=== PATIENT | female | born 1990 | race Caucasian/White ===

== ENCOUNTER → 2019-01-06 08:22 | Outpatient (CLI) | payer BC, SELFPAY ==
--- NOTE | 2019-01-06 08:25 | US_ITS ---
US transvaginal HISTORY: Irregular periods ITS.REASON: US T/V- Irregular periods ORDERING PHYSICIAN: Teddy Andrade MD PATIENT AGE: 28 years Comparison: None FINDINGS: The uterus has an unremarkable appearance at 6 x 3 x 3 cm. Combined endometrial thickness is 7 mm. No endometrial or myometrial abnormalities evident. The left ovary is 4 x 2 x 3 cm with small follicles noted. There are at least 8 follicles noted in one image with a total volume of the left ovary at 14 mL's. The right ovary is 4 x 3 cm also containing multiple small follicles with a volume of 11 mL's. No dominant cyst are apparent. No cul-de-sac fluid apparent. IMPRESSION: The ovaries are slightly prominent with ovarian volumes of greater than 10 mL was with multiple bilateral follicles which may be seen with polycystic ovarian syndrome. Correlation with clinical parameters are needed. Otherwise negative pelvic ultrasound
== END ==
PROVIDERS: Visit Provider Nurse Practitioner Obstetrics & Gynecology
DX: N92.6 Irregular menstruation, unspecified (principal)
CPT/HCPCS: 76830

== ENCOUNTER → 2019-05-29 09:06 | Outpatient (CLI) | payer BC, SELFPAY ==
--- NOTE | 2019-05-29 09:10 | US_ITS ---
PROCEDURE: US OB TRANSVAGINAL CLINICAL INDICATION: us ob dates Early OB with spotting COMPARISON: TRANVAG US transvaginal from 01/06/2019 FINDINGS: Uterus is 6 x 3 x 4 cm with a combined endometrial thickness of 5 mm. No intrauterine gestational sac is evident. The left ovary is 3.6 x 1.5 cm and the right ovary is 4 x 1 cm both containing small follicles. No cul-de-sac fluid. IMPRESSION: No intrauterine gestation apparent. Please correlate as the patient's beta HCG level regarding the significance. A negative ultrasound with positive test could be related to either a very early gestation, spontaneous , or ectopic . Dictated by: Yonny Ferrell MD 05/29/2019 17:33 Electronically signed by Yonny Ferrell MD in [facility] 05/29/2019 17:33
[2019-05-29 12:00] LABS: Basophils % 0.4 % (0.1-2.0); Eosinophils # 0.1 K/mm3 (0.0-0.4); Eosinophils % 0.8 % (0.1-12.0); Hematocrit 42.6 % (37.0-47.0); Hemoglobin 13.7 g/dL (12.2-16.2); Lymphocytes # 1.5 K/mm3 (0.7-4.5); Lymphocytes % 22.1 % (10-50); Mean Corpuscular HGB Conc 32.2 g/dL (31.8-35.4); Mean Corpuscular Hemoglobin 29.5 pg (27.0-31.2); Mean Corpuscular Volume 91.5 fl (81-99); Mean Platelet Volume 7.1 fl (7.4-10.4); Monocytes # 0.5 K/mm3 (0.1-1.0); Monocytes % 7.2 % (1.7-9.3); Neutrophils # 4.8 K/mm3 (1.8-7.8); Neutrophils % 69.5 % (37.0-80.0); Platelet Count 312 K/mm3 (142-424); Red Blood Count 4.65 M/mm3 (4.20-5.40); Red Cell Distribution Width 13.5 % (11.5-17.5); White Blood Count 6.9 K/mm3 (4.8-10.8)
[2019-05-29 12:35] LABS: HCG,Quantitative 12 mIU/mL
[2019-05-30 07:18] LABS: Hepatitis B Surface Antigen Negative (Negative); Hepatitis C Antibody <0.1 s/co ratio (0.0-0.9); Rubella Antibodies, IgG 1.24 index (Immune >0.99)
[2019-05-31 11:45] LABS: HIV Screen 4th Generation wRfx Non Reactive (Non Reactive); Rapid Plasma Reagin Ab Titer Non Reactive (NonRea<1:1)
== END ==
PROVIDERS: Visit Provider Nurse Practitioner Obstetrics & Gynecology
DX: O26.841 Uterine size-date discrepancy, first trimester (principal)
CPT/HCPCS: 36415; 76817; 84702; 85025; 86592; 86703; 86762; 86850; 87340; 87380; G0432

== ENCOUNTER → 2019-05-29 11:03 | Outpatient (CLI) | payer BC, SELFPAY | PROVIDERS: Visit Provider Nurse Practitioner Obstetrics & Gynecology | DX: O26.841 Uterine size-date discrepancy, first trimester (principal) | CPT/HCPCS: 36415; 84702; 85025; 86592; 86703; 86762; 86850; 87340; 87380; G0432 ==

== ENCOUNTER → 2019-05-31 11:17 | Outpatient (CLI) | payer BC, SELFPAY ==
[2019-05-31 12:26] LABS: HCG,Quantitative 4 mIU/mL
== END ==
PROVIDERS: Visit Provider Nurse Practitioner Obstetrics & Gynecology
DX: O03.9 Complete or unspecified spontaneous abortion without complication (principal)
CPT/HCPCS: 36415; 84702

== ENCOUNTER → 2019-12-11 11:03 | Outpatient (CLI) | payer OTHER, SELFPAY ==
[2019-12-11 11:34] LABS: Basophils % 0.2 % (0.1-2.0); Eosinophils # 0.1 K/mm3 (0.0-0.4); Eosinophils % 0.9 % (0.1-12.0); Hematocrit 39.6 % (37.0-47.0); Hemoglobin 13.7 g/dL (12.2-16.2); Lymphocytes # 1.2 K/mm3 (0.7-4.5); Lymphocytes % 19.9 % (10-50); Mean Corpuscular HGB Conc 34.5 g/dL (31.8-35.4); Mean Corpuscular Hemoglobin 30.2 pg (27.0-31.2); Mean Corpuscular Volume 87.7 fl (81-99); Mean Platelet Volume 7.5 fl (7.4-10.4); Monocytes # 0.3 K/mm3 (0.1-1.0); Monocytes % 4.7 % (1.7-9.3); Neutrophils # 4.6 K/mm3 (1.8-7.8); Neutrophils % 74.4 % (37.0-80.0); Platelet Count 208 K/mm3 (142-424); Red Blood Count 4.52 M/mm3 (4.20-5.40); Red Cell Distribution Width 12.4 % (11.5-17.5); White Blood Count 6.1 K/mm3 (4.8-10.8)
[2019-12-12 06:58] LABS: HIV Screen 4th Generation wRfx Non Reactive (Non Reactive); Hepatitis B Surface Antigen Negative (Negative); Hepatitis C Antibody <0.1 s/co ratio (0.0-0.9)
[2019-12-12 09:30] LABS: Rapid Plasma Reagin Ab Titer Non Reactive (NonRea<1:1); Rubella Antibodies, IgG 1.07 index (Immune >0.99)
== END ==
PROVIDERS: Visit Provider Nurse Practitioner Obstetrics & Gynecology
DX: Z34.90 Encounter for supervision of normal pregnancy, unspecified, unspecified trimester (principal)
CPT/HCPCS: 36415; 85025; 86592; 86703; 86762; 86850; 87340; 87380; G0432

== ENCOUNTER → 2019-12-12 08:32 | Outpatient (CLI) | payer OTHER, SELFPAY ==
--- NOTE | 2019-12-12 08:32 | US_ITS ---
PROCEDURE: US OB TRANSVAGINAL CLINICAL INDICATION: dates COMPARISON: US OB TRANSVAGINAL from 05/29/2019 FINDINGS: An intrauterine gestational sac is present with a pole with a crown-rump length of 1.42cm correlating to gestational age of 7weeks 6days. heart tones are present with an FHR of 170bpm. Yolk sac is noted. Unremarkable adnexa with small bilateral ovarian follicles IMPRESSION: Live IUP at 7 weeks 6 days Estimated due date by Ultrasound is 07/24/2020 Dictated by: Yonny Ferrell MD 12/12/2019 18:44 Electronically signed by Yonny Ferrell MD in [facility] 12/12/2019 18:44
== END ==
PROVIDERS: PCP Nurse Practitioner Obstetrics & Gynecology; Visit Provider Nurse Practitioner Obstetrics & Gynecology
DX: O26.841 Uterine size-date discrepancy, first trimester (principal)
CPT/HCPCS: 76817

== ENCOUNTER → 2020-03-04 12:57 | Outpatient (CLI) | payer OTHER, SELFPAY ==
--- NOTE | 2020-03-04 12:57 | US_ITS ---
PROCEDURE: US OB /MATERNAL DETAIL CLINICAL INDICATION: 20 weeks gestation of Anatomy exam COMPARISON: US OB TRANSVAGINAL from 12/12/2019 FINDINGS: There is a single live fetus which is in breech presentation. Cervix is closed measuring 3.6 cm transabdominal. The placenta is posterior and grade 1. heart and body motion noted. Complete survey performed and was unremarkable on the submitted images as in PACS. No discrete anomalies identified on survey imaging by technologist. Active fetus. Three-vessel cord with satisfactory umbilical cord insertion. 4- chamber heart noted. Survey of brain & ventricles Unremarkable. Face and neck survey unremarkable. Diaphragm and chest views unremarkable. Abdomen: Both kidneys noted and unremarkable. Stomach noted and satisfactory. Spine: Survey of the spine satisfactory with no anomalies identified nor imaged. Both arms and legs noted. Amniotic Fluid: Adequate. Maternal adnexa: No significant findings. Measurements: Average ultrasound age 19weeks 6days. Gestational Age 19 weeks 5 days Estimated due date by ultrasound age 1207/23/2020. Estimated weight 319g BPD = 19weeks 5days OFD = 20weeks 3days HC = 19weeks 2days AC = 20weeks FL = 20weeks 1day Growth Percentile= 55Percent% Heart Rate = 155bpm Cerebellum = 20weeks 6days Humerus = 20weeks 3days HC/AC is 1.14 CI is 0.75 FL/BPD is 0.72 FL/AC is 0.22 IMPRESSION: Live IUP at 19 weeks 6 days. All parameters correlate with no obvious anomalies. Please see above for detail. Dictated by: Yonny Ferrell MD 03/05/2020 12:12 Electronically signed by Yonny Ferrell MD in [facility] 03/05/2020 12:12
== END ==
PROVIDERS: PCP Nurse Practitioner Obstetrics & Gynecology; Visit Provider Nurse Practitioner Obstetrics & Gynecology
DX: Z34.90 Encounter for supervision of normal pregnancy, unspecified, unspecified trimester (principal); Z3A.20 20 weeks gestation of pregnancy
CPT/HCPCS: 76811

== ENCOUNTER → 2020-03-21 02:52 | Outpatient (CLI) | payer OTHER, SELFPAY ==
[2020-03-21 03:44] LABS: Coronavirus 19 IgG Antibody Negative (Negative); Coronavirus 19 IgM Antibody Negative (Negative)
== END ==
PROVIDERS: PCP Internal Medicine Adolescent Medicine; Visit Provider Family Medicine
DX: Z03.818 Encounter for observation for suspected exposure to other biological agents ruled out (principal)
CPT/HCPCS: 86328

== ENCOUNTER → 2020-04-18 08:24 | Outpatient (CLI) | payer OTHER, SELFPAY ==
[2020-04-19 13:11] LABS: Covid-19 Nasal PCR Sendout Lex Not Detected
== END ==
PROVIDERS: Visit Provider Internal Medicine Adolescent Medicine
DX: Z20.828 Contact with and (suspected) exposure to other viral communicable diseases (principal)
CPT/HCPCS: U0004

== ENCOUNTER → 2020-05-03 11:07 | Outpatient (CLI) | payer OTHER, SELFPAY ==
[2020-05-03 12:25] LABS: Glucose,Fasting 90 mg/dl (74-100)
[2020-05-03 14:28] LABS: Glucose 1 Hour 194 mg/dL (74-100)
== END ==
PROVIDERS: Visit Provider Nurse Practitioner Obstetrics & Gynecology
DX: Z34.90 Encounter for supervision of normal pregnancy, unspecified, unspecified trimester (principal)
CPT/HCPCS: 36415; 82951

== ENCOUNTER → 2020-05-24 09:11 | Outpatient (CLI) | payer OTHER, SELFPAY ==
[2020-05-24 12:55] LABS: Glucose 1 Hour 159 mg/dL (74-100); Glucose 2 Hour 151 mg/dL (74-100); Glucose 3 Hour 123 mg/dL (74-100); Glucose,Fasting 95 mg/dl (74-100)
== END ==
PROVIDERS: Visit Provider Nurse Practitioner Obstetrics & Gynecology
DX: Z34.90 Encounter for supervision of normal pregnancy, unspecified, unspecified trimester (principal)
CPT/HCPCS: 36415; 82951

== ENCOUNTER → 2020-05-28 08:22 | Outpatient (POV) | payer OTHER, SELFPAY ==
[2020-07-22 05:14] VITALS: BMI 28.1
[2020-07-22 06:02] LABS: Basophils # 0.1 K/mm3 (0-0.2); Basophils % 0.5 % (0.1-2.0); Eosinophils # 0.1 K/mm3 (0.0-0.4); Eosinophils % 1.1 % (0.1-12.0); Hematocrit 39.5 % (37.0-47.0); Hemoglobin 13.6 g/dL (12.2-16.2); Lymphocytes # 2.3 K/mm3 (0.7-4.5); Lymphocytes % 25.2 % (10-50); Mean Corpuscular HGB Conc 34.4 g/dL (31.8-35.4); Mean Corpuscular Hemoglobin 29.9 pg (27.0-31.2); Mean Corpuscular Volume 86.8 fl (81-99); Monocytes # 0.5 K/mm3 (0.1-1.0); Monocytes % 5.9 % (1.7-9.3); Neutrophils % 67.3 % (37.0-80.0); Platelet Count 192 K/mm3 (142-424); Red Blood Count 4.55 M/mm3 (4.20-5.40); Red Cell Distribution Width 13.7 % (11.5-17.5); White Blood Count 8.9 K/mm3 (4.8-10.8)
[2020-07-22 08:06] LABS: Coronavirus 19 IgG Antibody Negative (Negative); Coronavirus 19 IgM Antibody Negative (Negative)
== END ==
PROVIDERS: PCP Nurse Practitioner Obstetrics & Gynecology; Visit Provider Dermatology
DX: Z03.818 Encounter for observation for suspected exposure to other biological agents ruled out (principal)
CPT/HCPCS: 85025; 86328

== ENCOUNTER → 2020-06-20 16:07 | Outpatient (CLI) | payer OTHER, SELFPAY | PROVIDERS: Visit Provider Nurse Practitioner Obstetrics & Gynecology | DX: Z34.90 Encounter for supervision of normal pregnancy, unspecified, unspecified trimester (principal) | CPT/HCPCS: 86403 ==

== ENCOUNTER → 2020-07-12 12:00 | Outpatient (CLI) | payer OTHER, SELFPAY ==
--- NOTE | 2020-07-12 12:04 | US_ITS ---
PROCEDURE: US OB BIOPHYSICAL PROFILE CLINICAL INDICATION: SGA/ and check fluid levels Small for gestational age TECHNIQUE: FINDINGS: The following parameters are obtained: Average ultrasound age is Average 37weeks 3days Estimated due date by ultrasound is 07/30/2020. Estimated weight is 3,245g. This is 45 percentile. BPD: 37 weeks 0 days OFD: HC: 37 weeks 6 days AC: 38 weeks 2 days FL: 36 weeks 1 day heart rate: 124bpm bpm. HC/AC: 0.96 Cephalic index: 0.77 FL/BPD: 0.77 FL/AC: 0.21 Amniotic fluid index: 19.09cm Qualitative AFV: 2 breathing movements: 2 Gross body movements: 2 Tone: 2 Biophysical profile score: 8 The fetus is in cephalic presentation. heart and body motion is noted. The placenta is fundal and grade 2. IMPRESSION: Live IUP in cephalic presentation with an average ultrasound age of 37 weeks and 3 days and an estimated weight of 3245 g which is 45th percentile. Biophysical profile is 8 of 8 with normal CURTIS of 19 cm. Dictated by: Yonny Ferrell MD 07/13/2020 11:16 Yonny Ferrell MD in [facility] 07/13/2020 11:16
== END ==
PROVIDERS: Visit Provider Nurse Practitioner Obstetrics & Gynecology
DX: O36.5990 Maternal care for other known or suspected poor fetal growth, unspecified trimester, not applicable or unspecified (principal)
CPT/HCPCS: 76811; 76819

== ENCOUNTER 2020-07-22 06:02 | Inpatient (IN) | payer OTHER, SELFPAY ==
[2020-07-22 07:07] VITALS: BP 118/81; PULSE 86; RESP 16; TEMP 36.6; O2SAT 100; BMI 28.1
[2020-07-22 07:11] LABS: Coronavirus 19 IgG Antibody Negative (Negative); Coronavirus 19 IgM Antibody Negative (Negative)
[2020-07-22 07:59] VITALS: BP 109/77; PULSE 72; RESP 18; TEMP 36.9; O2SAT 99
--- NOTE | 2020-07-22 08:32 | HMH.LABNOT ---
Labor Note - Subjective: Date: 07/22/20 Time: 07:50 regular contraction - Objective: NST:: Reactive Contractions:: every 2-3 minutes Cervical Dilation:: 2-3 Effacement:: 75% Station: -1 Membranes: artificially ruptured - Fetus: Monitoring?: Yes monitoring type:: External - Assessment: Labor progressing?: Yes Cephalopelvic disproportion?: No Patient Problems: All Active Problems (Acute) - Plan: Anesthesia for epidural?: No Continue to labor down?: Yes Plan for ?: No Continue to monitor?: Yes
--- NOTE | 2020-07-22 08:32 | HMH.OBAPHP ---
OB - H&P: HPI Antepartum - History of Present Illness Chief complaint: She is a 30-year-old 1 para 0 at 39 weeks gestational age History of present illness: She is a 30-year-old 1 now para 0 at 39+ weeks gestational age. She has been feeling pressure and the baby is quite low. Since she is due we elected to induce her labor at term. - History of Present Criteria for establishing EDC:: LMP confirmed by 1st trimester US care: good care Ultrasounds: normal 1st trimester US, normal mid trimester US Obstetrical complications: none Medical complications: none [facility] History I have reviewed the patient's past medical history: Yes *Have you ever received a pneumonia vaccine?: No *Have you received a flu vaccine this season?: Yes Other Surgeries: Yes: No Previous Surgery. 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 Para: 0 Review of Systems - Review of Systems Review of systems:: pertinent systems reviewed and negative unless documented below Meds Home Medications Medication Instructions Recorded Confirmed Type prenat.vits,lara,vky-wqfr-bowhe 1 tab PO DAILY 12/11/19 07/22/20 History RX: Ferrous Sulfate 325 mg PO DAILY 07/22/20 07/22/20 History Allergies Allergy/AdvReac Type Severity Reaction Status Date / Time No Known Allergies Allergy Verified 07/12/20 11:38 OB - H&P: Exam - Physical Exam Vital signs: Temp Pulse Resp BP Pulse Ox 97.9 F 86 16 118/81 100 07/22/20 07:07 07/22/20 07:07 07/22/20 07:07 07/22/20 07:07 07/22/20 07:07 - Constitutional no acute distress - Routine HEENT Exam Head: Present: normocephalic Eye: Present: EOMI, PERRL ENT: Present: mucous membranes moist - Routine Neck Exam Present: supple, full ROM - Routine Respiratory Exam Absent: accessory muscle use (good air entry bilaterally), respiratory distress, wheezes, crackles - Routine Cardiovascular Exam Present: RRR. Absent: murmur - Routine Abdominal Exam Present: soft, normoactive bowel sounds. Absent: tenderness, distended, guarding - Routine Rectal Exam Patient deferred: visual exam, digital exam - Routine Exam Patient deferred: external exam, groin exam, perineal exam - Routine Extremities Exam Present: full ROM. Absent: cyanosis, edema - Routine Skin Exam Present: intact. Absent: cyanosis - Routine Neurological Exam Present: alert, oriented X3 - Routine Psychiatric Exam Present: normal affect OB - A/P Antepartum (1) Normal delivery at term Status: Acute - Additional Plan Planning to breastfeed?: Yes Plan: induction Additional Information:: I have ruptured her membranes and there was clear fluid. We will expect a vaginal delivery. She is anthony every 2 to 3 minutes.
[2020-07-22 08:37] LABS: Basophils % 0.3 % (0.1-2.0); Eosinophils # 0.1 K/mm3 (0.0-0.4); Hematocrit 40.5 % (37.0-47.0); Hemoglobin 13.5 g/dL (12.2-16.2); Lymphocytes # 2.2 K/mm3 (0.7-4.5); Lymphocytes % 24.9 % (10-50); Mean Corpuscular HGB Conc 33.4 g/dL (31.8-35.4); Mean Corpuscular Hemoglobin 29.7 pg (27.0-31.2); Mean Corpuscular Volume 89.1 fl (81-99); Mean Platelet Volume 8.6 fl (7.4-10.4); Monocytes # 0.5 K/mm3 (0.1-1.0); Monocytes % 5.6 % (1.7-9.3); Neutrophils # 6.1 K/mm3 (1.8-7.8); Neutrophils % 68.2 % (37.0-80.0); Platelet Count 200 K/mm3 (142-424); Red Blood Count 4.55 M/mm3 (4.20-5.40); Red Cell Distribution Width 13.7 % (11.5-17.5); White Blood Count 8.9 K/mm3 (4.8-10.8)
[2020-07-22 08:38] LABS: Appearance,Urine CLEAR (Clear); Bilirubin,Urine Negative (Negative); Blood, Urine TRACE-I (Negative); Color,Urine YELLOW (Yellow); Glucose,Urine (UA) Negative (Negative); Ketones,Urine Negative (Negative); Leukocyte Esterase,Urine Negative (Negative); Microscopic, Urine URINE MICROSCOPIC (MICROSCOPIC); Nitrate,Urine Negative (Negative); PH,Urine 6.5 (5.0-8.5); Protein,Urine Negative (Negative); Specific Gravity, Urine 1.025 (1.005-1.030); Urobilinogen,Urine 0.2 EU/dl (0.2)
[2020-07-22 08:59] LABS: Benzodiazepines Screen,Urine Negative ng/ml (<200)
[2020-07-22 09:00] LABS: Amphetamine/Metha Screen,Urine Negative ng/ml (<1000)
[2020-07-22 09:01] LABS: Squamous Epithelial Cell,Urine Occasional #/hpf (0-5)
[2020-07-22 09:01] LABS: Barbiturates Screen,Urine Negative ng/ml (<200); Methadone Screen,Urine Negative ng/ml (<300)
[2020-07-22 09:02] LABS: Cannabinoid Screen,Urine Negative ng/ml (<50); Cocaine Screen,Urine Negative ng/ml (<300)
[2020-07-22 09:03] LABS: Opiate Screen,Urine Negative ng/ml (<300)
[2020-07-22 09:04] LABS: Phencyclidine Screen,Urine Negative ng/ml (<25)
--- NOTE | 2020-07-22 09:44 | HMH.LABNOT ---
Labor Note - Subjective: Date: 07/22/20 Time: 09:44 regular contraction - Objective: NST:: Reactive Contractions:: every 2-3 minutes Cervical Dilation:: 2-3 Effacement:: 90% Station: -1 Membranes: artificially ruptured - Fetus: Monitoring?: Yes monitoring type:: Internal and External Comment:: I inserted an IUPC - Assessment: Labor progressing?: Yes Cephalopelvic disproportion?: No Patient Problems: All Active Problems Normal delivery at term (Acute) (Acute) - Plan: Anesthesia for epidural?: No Continue to labor down?: Yes Plan for ?: No Continue to monitor?: Yes Start pushing?: No
--- NOTE | 2020-07-22 11:53 | HMH.LABNOT ---
Labor Note - Subjective: Date: 07/22/20 Time: 11:53 regular contraction - Objective: NST:: Reactive Contractions:: every 2-3 minutes Cervical Dilation:: 4 Effacement:: 90% Station: -1 Membranes: artificially ruptured - Fetus: Monitoring?: Yes monitoring type:: Internal and External - Assessment: Labor progressing?: Yes Cephalopelvic disproportion?: No Patient Problems: All Active Problems Normal delivery at term (Acute) (Acute) - Plan: Anesthesia for epidural?: No Continue to labor down?: Yes Plan for ?: No Continue to monitor?: Yes Start pushing?: No Comment:: She is doing well and cervix is changing appropriately. We will continue to monitor her.
[2020-07-22 12:33] VITALS: BP 123/88; PULSE 70; RESP 20; TEMP 36.6; O2SAT 98
--- NOTE | 2020-07-22 13:57 | HMH.LABNOT ---
Labor Note - Subjective: Date: 07/22/20 Time: 13:57 regular contraction - Objective: NST:: Reactive Contractions:: every 2-3 minutes Cervical Dilation:: 5-6 Effacement:: 100% Station: 0 Membranes: artificially ruptured - Fetus: monitoring type:: Internal and External - Assessment: Labor progressing?: Yes Cephalopelvic disproportion?: No Patient Problems: All Active Problems Normal delivery at term (Acute) (Acute) - Plan: Anesthesia for epidural?: Yes Continue to labor down?: Yes Plan for ?: No Continue to monitor?: Yes Start pushing?: No
--- NOTE | 2020-07-22 13:59 | HMH.ANESCL ---
[facility] Anesthesia Checklist - Patient Identification Patient Identification: Arm Band - Structural Data Admitted From: Inpatient Planned Operative Procedure/s: labor epidural Consent for Planned Operative Procedure(s) Verified: Yes Verified Documents: Surgical Consent, History and Physical - NPO Status Verified Time NPO: 00:00 - Additional verifications Anesthesia Reactions: No - Airway Assessment C-Spine Mobility Assessed: Yes TMJ Mobility Assessed: Yes Dentition: Good Dentition - Neurological Assessment Level of Consciousness: Awake, Alert - Anesthesia Plan Anesthesia Risk discussed: Yes Anesthesia Plan: Verified ASA Class: II Anesthesia Type: Epidural [facility] History I have reviewed the patient's past medical history: Yes *Have you ever received a pneumonia vaccine?: No *Have you received a flu vaccine this season?: Yes Anesthesia experience/problems:: nac Other Surgeries: Yes: No Previous Surgery. 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
--- NOTE | 2020-07-22 16:22 | HMH.LABNOT ---
Labor Note - Subjective: Date: 07/22/20 Time: 16:22 regular contraction - Objective: NST:: Reactive Contractions:: every 2-3 minutes Cervical Dilation:: 9-10 Effacement:: 100% Station: 0 Membranes: artificially ruptured - Fetus: Monitoring?: Yes monitoring type:: Internal - Assessment: Labor progressing?: Yes Cephalopelvic disproportion?: No Patient Problems: All Active Problems Normal delivery at term (Acute) (Acute) - Plan: Anesthesia for epidural?: Yes Continue to labor down?: Yes Plan for ?: No Continue to monitor?: Yes Start pushing?: No Comment:: She seemed to be having mild contractions 1 on top of the other. I removed and then reinserted her IUPC. We are going to give her an amnioinfusion as well. I inserted a clip as well. She is now having contractions about every 3 minutes. They seem to be fairly strong. She is 9 cm. We will expect they vaginal delivery.
[2020-07-22 19:36] LABS: Cord Blood PH 7.29 (7.35-7.45)
--- NOTE | 2020-07-22 19:45 | HMH.DN ---
- Delivery Note Delivery Date:: 07/22/20 Delivery Time:: 19:23 Anesthesia Type: Epidural Was labor medically induced?: Yes Induction method: per pitocin protocol Gestational age (weeks): 39 Infant delivered prior to 39 weeks?: No Infant Gender: Male at 1 minute: 8 at 5 minutes: 9 LAC or MLE?: LAC Delivery Procedure:: She is a 30-year-old 2 para 0 aborta 1 who was 39 and 5 weeks gestational age. She is brought in at term for delivery. She has been feeling a lot of pressure. She was started on IV oxytocin had her membranes ruptured. Under labor epidural she progressed to full dilation and began pushing. She was station +3 to +4 and was having prolonged decelerations into the 60s and 70s. As result of that I elected to place forceps. Breaux forceps with pads were placed in the direct OA position, the bladder was empty. Using moderate traction over the course of the patient pushing through 1 contraction, I was able to easily deliver the head. After the delivery of the head the anterior shoulder then easily delivered followed by the rest the infant's body atraumatically. The cord was then doubly clamped and cut and the was handed off to Dr. Edwards who assigned Apgars of 8 at 1 minute and 9 at 5 minutes. We then obtained cord blood as well as cord pH. She had bilateral small vaginal lacerations and using interrupted 3-0 Vicryl Rapide suture I was able to easily reapproximate the tissue. There were no perineal lacerations. The posterior vagina was intact. She received IV oxytocin using gentle traction on the cord and countertraction on the fundus I was able to easily deliver the placenta intact. Had a normal three-vessel cord. She has B positive blood, she is rubella immune and was group B streptococcus negative. She plans to breast-feed. Her estimated blood loss is approximately 400 cc. Laceration:: vaginal Placental Delivery Description: Spontaneous
[2020-07-22 20:26] VITALS: BP 112/71; PULSE 78; RESP 18; TEMP 36.5; O2SAT 100
[2020-07-23 05:20] VITALS: BP 98/58; PULSE 100; RESP 18; TEMP 36.4; O2SAT 97
[2020-07-23 07:39] VITALS: BP 121/72; PULSE 113; RESP 18; TEMP 36.6; O2SAT 98
[2020-07-23 07:49] LABS: Hematocrit 34.2 % (37.0-47.0); Hemoglobin 11.8 g/dL (12.2-16.2)
--- NOTE | 2020-07-23 13:38 | HMH.ACPN2 ---
Internal Medicine - PN: Subj *Date: 07/23/20 *Time: 13:38 Interval history: She is doing very well. She is bottlefeeding. Her lochia is normal. She has a small amount of swelling in the perineum but otherwise is doing well. Exam Vital signs and Labs for Last 24 Hours: Temp Pulse Resp BP Pulse Ox 97.8 F 113 H 18 121/72 98 07/23/20 07:39 07/23/20 07:39 07/23/20 07:39 07/23/20 07:39 07/23/20 07:39 Laboratory Results - last 24 hr 07/22/20 19:34: Cord ABG pH 7.29 L 07/23/20 07:40: Hgb 11.8 L, Hct 34.2 L I & O for Last 24 hours: Intake & Output 07/21/20 07/22/20 07/23/20 07/24/20 11:59 11:59 11:59 11:59 Output Total 800 / 800 Balance -800 / -800 Weight 154 lb - Constitutional no acute distress - *Routine HEENT Exam Head: Present: normocephalic Eye: Present: EOMI, PERRL ENT: Present: mucous membranes moist Assessment and Plan (1) Normal delivery at term Status: Acute Category: Medical Code(s): O80 - Encounter for full-term uncomplicated delivery - Assessment and plan all Dx Assessment and Plan for all problems:: She is doing well on her first day. She is bottlefeeding. Her lochia is normal. We will plan to send her home tomorrow.
[2020-07-23 20:00] VITALS: BP 104/63; PULSE 83; RESP 18; TEMP 36; O2SAT 98
[2020-07-24 04:00] VITALS: BP 97/62; PULSE 80; RESP 17; TEMP 36.6; O2SAT 97
--- NOTE | 2020-07-24 08:42 | HMH.OBDCSM ---
General - General Admission date:: 07/22/20 Discharge date: 07/24/20 HPI - History of Present Illness History of present illness: She is a 30-year-old 2 para 1 aborta 1 who was 39 and 5 weeks gestational age. She was feeling lots of pressure and since she was term we elected to deliver her. Hospital Course Hospital Course: She was started on IV oxytocin and had her membranes ruptured. She progressed to full dilation and delivered with the assistance of outlet forceps a liveborn male child at 7:23 PM in the evening of July 22, 2020. The baby was a liveborn male child weighing 7 pounds 9 ounces and he was 19 inches long. He had Apgars of 8 at 1 minute and 9 at 5 minutes. She has done well and has remained afebrile throughout her hospitalization. She is eating and drinking and ambulating. She is bottlefeeding. She does have a sore tailbone and her tailbone was quite prominent when she was examined during labor. It is not clear whether she is bruised or broken her tailbone. She has B Rh+ blood, she is rubella immune and was group B streptococcus negative. Her director of the biophysics facility is Dr. Baltazar. She is discharged home to follow-up with me in approximately 2 weeks time. She will continue with her vitamins and iron. She was given a prescription for Percocet 5/325 number 20 tablets. Her condition on discharge is stable and improved. Rhogam Administration: Not Indicated Objective Vital signs: Temp Pulse Resp BP Pulse Ox 97.8 F 80 17 97/62 L 97 07/24/20 04:00 07/24/20 04:00 07/24/20 04:00 07/24/20 04:00 07/24/20 04:00 no acute distress - *Routine HEENT Exam Head: Present: normocephalic Eye: Present: EOMI, PERRL ENT: Present: mucous membranes moist DS: Diagnosis - Discharge Diagnosis (1) Normal delivery at term Status: Acute Discharge Plan - Patient Discharge Instructions ACTIVITY: No heavy lifting DIET: continue same diet Additional Instructions: No heavy lifting Nothing in the vagina for 6 weeks Drink plenty of fluids Patient Instructions: Depression, Hemorrhage, DI for Labor and Delivery, Vaginal , DI for Pre-eclampsia, [facility] Post Discharge Instructions, Preventing the Spread of Coronavirus Discharge Instructions - Follow up Plan Follow up with: Teddy Andrade MD [Staff Physician] - Disposition: Home, Self-Nursing Home Medications: Home Medications Medication Instructions Recorded Confirmed Type prenat.vits,lara,xft-ttmn-hvwtx 1 tab PO DAILY 12/11/19 07/22/20 History Ferrous Sulfate 325 mg PO DAILY 07/22/20 07/22/20 History Oxycodone HCl/Acetaminophen 1 tab PO Q4-6H PRN #20 tab 07/24/20 Rx [Percocet 5/325mg tablet] Prescriptions/Medication Reconciliation: New Oxycodone HCl/Acetaminophen [Percocet 5/325mg tablet] 1 tab PO Q4-6H PRN #20 tab PRN Reason: Severe Pain Continued prenat.vits,lara,[id number] 1 tab PO DAILY Ferrous Sulfate 325 mg PO DAILY - Problem Reconciliation Problems Reviewed?: Yes
== END 2020-07-24 12:50 | disposition home or self-care (01) | DRG 807 ==
PROVIDERS: Admitting Provider Nurse Practitioner Obstetrics & Gynecology; Visit Provider Obstetrics & Gynecology
DX: O76 Abnormality in fetal heart rate and rhythm complicating labor and delivery (principal); Z37.0 Single live birth; O66.5 Attempted application of vacuum extractor and forceps; Z3A.39 39 weeks gestation of pregnancy; O70.0 First degree perineal laceration during delivery
CPT/HCPCS: 59409; 59025; 80305; 81001; 82800; 85014; 85018; 85025; 86328; 86850; 94761; C1758; J2405

== ENCOUNTER → 2020-10-19 15:36 | Outpatient (CLI) | payer OTHER, SELFPAY ==
[2020-10-19 15:45] VITALS: BMI 23.6
== END ==
PROVIDERS: Visit Provider Emergency Medicine
DX: M54.2 Cervicalgia (principal); M54.9 Dorsalgia, unspecified

== ENCOUNTER → 2020-11-19 08:51 | Outpatient (POV) | payer OTHER, SELFPAY | PROVIDERS: Visit Provider Dermatology | DX: Z00.00 Encounter for general adult medical examination without abnormal findings (principal) ==

== ENCOUNTER → 2021-09-23 15:55 | Outpatient (POV) | payer OTHER, SELFPAY | PROVIDERS: Visit Provider Dermatology | DX: Z00.00 Encounter for general adult medical examination without abnormal findings (principal) ==

== ENCOUNTER → 2022-03-20 18:20 | Outpatient (CLI) | payer SELFPAY | PROVIDERS: Visit Provider Nurse Practitioner Family | DX: Z02.89 Encounter for other administrative examinations (principal) ==

== ENCOUNTER 2022-10-06 10:55 | Emergency (ER) | payer BC, SELFPAY ==
[2022-10-06 11:05] VITALS: BP 109/73; PULSE 97; RESP 21; TEMP 36.9; O2SAT 100; BMI 20.5
--- NOTE | 2022-10-06 11:13 | EXP.UTC ---
Discharge Plan Disposition Patient Disposition: Home, Self-Care Condition: Good Prescriptions Prescriptions: New azithromycin [Zithromax Z-Pancho] 250 mg tablet See Rx Instructions .ROUTE .COMPLEX 5 Days Qty: 6 0RF Rx Instructions: For 250 mg dose pack: take 500 mg today (day 1), then 250 mg for 4 days (days 2-5) methylprednisolone [Medrol (Pancho)] 4 mg tablets,dose pack See Rx Instructions .Route .COMPLEX 6 Days Qty: 21 0RF Rx Instructions: taper pack; No Action Xulane 150-35 mcg/24 hr patch weekly 1 patch TRANSDERMA WEEKLY Qty: 3 4RF Rx Instructions: apply once weekly for 3 weeks of a 4-week cycle fluconazole 150 mg tablet 150 mg PO DAILY 1 Days Qty: 1 0RF doxycycline hyclate 100 mg tablet 100 mg PO BID 7 Days Qty: 14 0RF Referrals Follow up/Referrals: Provider,Referral, MD [Primary Care Provider] - See instructions Activity Restrictions/Add. Instructions Additional Instructions/Restrictions: *Monitor Temp, Over the counter Motrin or Tylenol as directed/as needed Tylenol every 4 hours and Motrin every 6 hours (as long as your family doctor has told you that you can take it) for fever or pain. and straight to ER if unable to lower temp less than 101.0 after medication given *Warm salt water gargles may help to soothe the throat *Throat Lozenges? *Warm fluids like tea with honey may help to soothe the throat? *Sleep elevated *Humidifier/Vaporizer Your throat swab was sent for culture. Those results are typically sent to your primary care. Be sure to follow up in 2-3 days with your family doctor/primary care physician if no improvement so they can review those result and treat if necessary. If you don?t have a primary care doctor, I recommend you get one but in the mean time, you will have to return to a walk in clinic Follow up IMMEDIATELY for new or worsening symptoms or no Noticeable improvement over the next 48-72 hours. 911 for difficulty breathing or swallowing You were tested for today for COVID19 your test result should be back in the next 24-48 hours, you may check your results on the [facility] [employer] Portal Clinical Impressions Clinical Impression: URI (upper respiratory infection) Qualifiers: URI type: unspecified URI Qualified Code(s): J06.9 - Acute upper respiratory infection, unspecified Stand Alone Forms Stand Alone Forms: Work/School Release Instructions Patient Instructions: Sore Throat, DI for Sinusitis Discharge ED Provider: Alyssa Kovacs [facility] HPI General Stated complaint: Congestion,Cough,fever Time Seen by Provider: 10/06/22 11:13 History of Present Illness Provider Complaint: Patient state that she has been having nasal congestion, cough, fever and scratchy throat States that today she has been achy all over and feeling like her lymph nodes under her right armpit may be swollen Related Data Previous Rx's Medication Instructions Recorded norelgestromin 150 mcg-e.estradiol 1 patch transdermal WEEKLY #3 ea 09/03/20 35 mcg/24 hr weekly transderm patch (Xulane) azithromycin 250 mg tablet See Rx Instructions PO .COMPLEX 5 10/06/22 (Zithromax Z-Pancho) days #6 tabs methylprednisolone 4 mg tablets in See Rx Instructions .Route 10/06/22 a dose pack (Medrol (Pancho)) .COMPLEX 6 days #21 tabs Allergies Allergy/AdvReac Type Severity Reaction Status Date / Time No Known Allergies Allergy Verified 10/06/22 11:37 [facility] Disclaimer: The information contained in this section may have been updated after the patient was seen, as this information can be updated by other users. Social History Smoking Status: Never smoker alcohol intake: never substance use type: denies use current occupational status: employed Travel in the last 8 weeks: None ROS Obtained: Yes All systems reviewed & no additional complaints except as documented and Yes Systems reviewed as appropriate & no additional complaints except
[2022-10-06 11:23] LABS: UTC Influenza A Antigen Negative (Negative); UTC Influenza B Antigen Negative (Negative); UTC Strep Screen (Rapid) Negative (Negative)
[2022-10-06 11:51] VITALS: BP 109/73; PULSE 97; RESP 21; TEMP 36.9; O2SAT 100
[2022-10-06 11:56] LABS: Coronavirus 19, PCR Not Detected (NotDetected); Influenza A, PCR Not Detected (NotDetected); Influenza B, PCR Not Detected (NotDetected)
== END 2022-10-06 11:50 | disposition home or self-care (01) ==
PROVIDERS: Emergency Provider Nurse Practitioner
DX: J06.9 Acute upper respiratory infection, unspecified (principal)
CPT/HCPCS: 87804; 87880; 99212; 99214; C9803; G0463; U0003; U0005

== ENCOUNTER → 2022-11-06 08:50 | Outpatient (CLI) | payer BC, SELFPAY ==
[2022-11-06 10:13] LABS: HCG,Quantitative 455 mIU/ml (0-5.42)
[2022-11-07 11:00] LABS: Progesterone 15.2 ng/mL (.)
== END ==
PROVIDERS: Visit Provider Obstetrics & Gynecology
DX: Z34.90 Encounter for supervision of normal pregnancy, unspecified, unspecified trimester (principal)
CPT/HCPCS: 36415; 84144; 84702

== ENCOUNTER → 2022-11-26 11:20 | Outpatient (CLI) | payer BC, SELFPAY | PROVIDERS: Visit Provider Obstetrics & Gynecology | DX: Z34.90 Encounter for supervision of normal pregnancy, unspecified, unspecified trimester (principal); B95.4 Other streptococcus as the cause of diseases classified elsewhere | CPT/HCPCS: 87086; 87088; 87186 ==

== ENCOUNTER → 2023-01-29 08:54 | Outpatient (CLI) | payer BC, SELFPAY ==
[2023-01-30 15:53] LABS: Basophils % 0.3 % (0.1-2.0); Eosinophils # 0.1 K/mm3 (0.0-0.4); Eosinophils % 1.6 % (0.1-12.0); Hematocrit 36.3 % (37.0-47.0); Hemoglobin 12.2 g/dL (12.2-16.2); Lymphocytes # 1.7 K/mm3 (0.7-4.5); Lymphocytes % 19.9 % (10-50); Mean Corpuscular HGB Conc 33.7 g/dL (31.8-35.4); Mean Corpuscular Hemoglobin 29.3 pg (27.0-31.2); Mean Corpuscular Volume 86.8 fl (81-99); Mean Platelet Volume 7.4 fl (7.4-10.4); Monocytes # 0.4 K/mm3 (0.1-1.0); Monocytes % 5.1 % (1.7-9.3); Neutrophils # 6.3 K/mm3 (1.8-7.8); Neutrophils % 73.1 % (37.0-80.0); Platelet Count 211 K/mm3 (142-424); Red Blood Count 4.18 M/mm3 (4.20-5.40); Red Cell Distribution Width 13.6 % (11.5-17.5); White Blood Count 8.6 K/mm3 (4.8-10.8)
[2023-03-10 00:09] LABS: HIV Screen 4th Generation wRfx Non Reactive; Hepatitis B Surface Antigen Negative
[2023-03-10 00:10] LABS: Hepatitis C Antibody Non Reactive; Rapid Plasma Reagin Ab Titer Non Reactive
[2023-03-10 00:11] LABS: Rubella Antibodies, IgG 0.99
== END ==
PROVIDERS: PCP Obstetrics & Gynecology; Visit Provider Obstetrics & Gynecology
DX: Z34.92 Encounter for supervision of normal pregnancy, unspecified, second trimester (principal); Z3A.17 17 weeks gestation of pregnancy
CPT/HCPCS: 85025; 86593; 86703; 86762; 86850; 87340; 87380; G0432

== ENCOUNTER → 2023-02-18 12:51 | Outpatient (CLI) | payer BC, SELFPAY ==
--- NOTE | 2023-02-18 12:51 | US_ITS ---
PROCEDURE: US OB /MATERNAL DETAIL CLINICAL INDICATION: 20 week anatomy scan COMPARISON: No exams were available for comparison FINDINGS: From her established due date she is 20 weeks and 1 day gestational age. Single viable intrauterine gestation. Breech presentation. Placenta: Anteriorplacenta grade 1. There is average amount fluid. The cervix appears satisfactory. Closed and measuring 3.6 cm in length. Complete survey performed and was unremarkable on the submitted images as in PACS. No discrete anomalies identified on survey imaging by technologist. Active fetus. Three-vessel cord with satisfactory umbilical cord insertion. 4- chamber heart noted. RVOT, LVOT appear normal, aortic arch normal. Survey of brain & ventricles Unremarkable. Choroid plexus, thalamus, cerebellum, cisterna magna, appear normal Face and neck survey unremarkable. Lips and nose, appear normal. Profile and nasion appear normal. Diaphragm and chest views unremarkable. Abdomen: Both kidneys noted and unremarkable. Stomach noted and satisfactory. Bladder appears normal. Spine: Survey of the spine satisfactory with no anomalies identified nor imaged. Upper thoracic and lower spine appear normal. Both arms and legs noted. Amniotic Fluid: Adequate. Measurements: Average ultrasound age 19weeks 2days. Estimated due date by ultrasound age 1107/13/2023. Estimated weight 291g BPD = 19weeks 0 days OFD = 19weeks 5days HC = 18weeks 5days AC = 19weeks 4days FL = 19weeks 4days Growth Percentile= 13 percent Heart Rate = 155bpm Cerebellum = 18weeks 6days Humerus = 19weeks 4days HC/AC is 1.11 CI is 0.75 FL/BPD is 0.71 FL/AC is 0.21 IMPRESSION: 1. Viable fetus in the breech presentation with an anterior placenta. Fluid is within normal limits. 2. Anatomical scan appears normal. 3. Size and dates are appropriate. They are within 1 week of established due date. Dictated by: Teddy Andrade MD 02/18/2023 16:01 Teddy Andrade MD in [facility] 02/18/2023 16:01
== END ==
PROVIDERS: PCP Obstetrics & Gynecology; Visit Provider Obstetrics & Gynecology
DX: Z34.92 Encounter for supervision of normal pregnancy, unspecified, second trimester (principal); Z3A.20 20 weeks gestation of pregnancy
CPT/HCPCS: 76811

== ENCOUNTER → 2023-04-14 06:52 | Outpatient (CLI) | payer BC, SELFPAY ==
[2023-04-14 07:37] LABS: Glucose,Fasting 84 mg/dl (74-100)
[2023-04-14 07:38] LABS: Basophils % 0.3 % (0.1-2.0); Eosinophils # 0.1 K/mm3 (0.0-0.4); Hematocrit 37.2 % (37.0-47.0); Hemoglobin 12.3 g/dL (12.2-16.2); Lymphocytes # 1.8 K/mm3 (0.7-4.5); Lymphocytes % 19.5 % (10-50); Mean Corpuscular HGB Conc 33.1 g/dL (31.8-35.4); Mean Corpuscular Hemoglobin 29.8 pg (27.0-31.2); Mean Corpuscular Volume 90.2 fl (81-99); Mean Platelet Volume 7.9 fl (7.4-10.4); Monocytes # 0.8 K/mm3 (0.1-1.0); Monocytes % 8.1 % (1.7-9.3); Neutrophils # 6.6 K/mm3 (1.8-7.8); Neutrophils % 70.9 % (37.0-80.0); Platelet Count 200 K/mm3 (142-424); Red Blood Count 4.13 M/mm3 (4.20-5.40); Red Cell Distribution Width 13.1 % (11.5-17.5); White Blood Count 9.3 K/mm3 (4.8-10.8)
[2023-04-14 09:20] LABS: Glucose 1 Hour 137 mg/dL (74-100)
== END ==
PROVIDERS: Visit Provider Obstetrics & Gynecology
DX: Z34.92 Encounter for supervision of normal pregnancy, unspecified, second trimester (principal); Z3A.28 28 weeks gestation of pregnancy
CPT/HCPCS: 36415; 82951; 85025

== ENCOUNTER → 2023-04-14 13:53 | Outpatient (CLI) | payer BC, SELFPAY ==
--- NOTE | 2023-04-14 13:53 | US_ITS ---
PROCEDURE: US OB FOLLOW UP CLINICAL INDICATION: sga/ with CURTIS COMPARISON: US US OB /MATERNAL DETAIL from 02/18/2023 FINDINGS: Transabdominal sonographic images of the uterus were obtained. The following parameters are obtained: From her established due date she is 28weeks 0 days Viable fetus in the breech presentation with an anterior placenta grade 1. Cervix measures 4.1 cm. heart rate: 147bpm bpm. BPD: 27weeks 2days HC: 28weeks 0 days AC: 27weeks 3days FL: 27weeks 5days Estimated weight 2 pounds 7 ounces, 1092 grams. 22nd percentile HC/AC: 1.12 Cephalic index: FL/BPD: 0.77 FL/AC: 0.23 Amniotic fluid index: 12.26cm No obvious anomalies evident. profile seen, nasion, stomach, bladder, diaphragm, kidneys, three-vessel cord, four chamber heart appear normal. IMPRESSION: 1. Viable fetus in the BREECH presentation with an anterior placenta grade 1. 2. The fluid is within normal limits with an amniotic fluid index of 12.26 cm. 3. There has been good interval growth and the fetus is 22 percentile. 4. Fetus is active. Dictated by: Teddy Andrade MD 04/14/2023 17:10 Teddy Andrade MD in [facility] 04/14/2023 17:10
== END ==
LOC: RAD 13:53
PROVIDERS: PCP Obstetrics & Gynecology; Visit Provider Obstetrics & Gynecology
DX: O28.8 Other abnormal findings on antenatal screening of mother (principal); O36.5920 Maternal care for other known or suspected poor fetal growth, second trimester, not applicable or unspecified
CPT/HCPCS: 76816

== ENCOUNTER 2023-05-04 10:56 | Outpatient (CLI) | payer BC, SELFPAY ==
[2023-05-04 11:30] VITALS: BP 95/59; PULSE 82; RESP 18; TEMP 36.5; O2SAT 96; BMI 25.0
[2023-05-04 11:32] VITALS: BMI 25.0
[2023-05-04 11:36] LABS: Microscopic, Urine URINE MICROSCOPIC (MICROSCOPIC)
[2023-05-04 11:46] LABS: Fetal Membrane Rupture (Rapid) Negative (Negative)
[2023-05-04 11:46] LABS: Appearance,Urine CLEAR (Clear); Bilirubin,Urine Negative (Negative); Blood, Urine Negative (Negative); Color,Urine YELLOW (Yellow); Glucose,Urine (UA) Negative (Negative); Ketones,Urine TRACE (Negative); Leukocyte Esterase,Urine 2+ (Negative); Nitrate,Urine Negative (Negative); Protein,Urine Negative (Negative); Specific Gravity, Urine 1.025 (1.005-1.030); Urobilinogen,Urine 0.2 EU/dl (0.2)
[2023-05-04 11:57] LABS: Amphetamine/Metha Screen,Urine Negative ng/ml (<1000)
[2023-05-04 11:58] LABS: Barbiturates Screen,Urine Negative ng/ml (<200); Benzodiazepines Screen,Urine Negative ng/ml (<200)
[2023-05-04 12:00] LABS: Cocaine Screen,Urine Negative ng/ml (<300)
[2023-05-04 12:01] LABS: Methadone Screen,Urine Negative ng/ml (<300); Opiate Screen,Urine Negative ng/ml (<300)
[2023-05-04 12:02] LABS: Phencyclidine Screen,Urine Negative ng/ml (<25)
[2023-05-04 12:33] LABS: Bacteria,Urine Trace /lpf
[2023-05-04 13:46] LABS: Cannabinoid Screen,Urine Negative ng/ml (<50)
== END 2023-05-04 12:05 | disposition home or self-care (01) ==
LOC: OBOUT 10:58 → OB 10:58
PROVIDERS: Visit Provider Obstetrics & Gynecology
DX: Z34.93 Encounter for supervision of normal pregnancy, unspecified, third trimester (principal); Z3A.31 31 weeks gestation of pregnancy
CPT/HCPCS: 59025; 80305; 81001; 84112; 87086; G0463

== ENCOUNTER → 2023-06-09 23:29 | Outpatient (CLI) | payer BC, SELFPAY | PROVIDERS: PCP Obstetrics & Gynecology; Visit Provider Obstetrics & Gynecology | DX: Z34.93 Encounter for supervision of normal pregnancy, unspecified, third trimester (principal); Z3A.37 37 weeks gestation of pregnancy | CPT/HCPCS: 86403 ==

== ENCOUNTER 2023-07-07 05:33 | Inpatient (IN) | payer BC, SELFPAY ==
[2023-07-07 05:38] VITALS: BMI 26.9
[2023-07-07 06:05] LABS: Microscopic, Urine URINE MICROSCOPIC (MICROSCOPIC)
[2023-07-07 06:17] LABS: Appearance,Urine CLEAR (Clear); Bilirubin,Urine Negative (Negative); Blood, Urine 1+ (Negative); Color,Urine YELLOW (Yellow); Glucose,Urine (UA) Negative (Negative); Ketones,Urine Negative (Negative); Leukocyte Esterase,Urine 3+ (Negative); Nitrate,Urine Negative (Negative); PH,Urine 6.5 (5.0-8.5); Protein,Urine TRACE (Negative); Urobilinogen,Urine 0.2 EU/dl (0.2)
[2023-07-07 06:30] LABS: Amphetamine/Metha Screen,Urine Negative ng/ml (<1000); Barbiturates Screen,Urine Negative ng/ml (<200)
[2023-07-07 06:31] LABS: Benzodiazepines Screen,Urine Negative ng/ml (<200)
[2023-07-07 06:32] LABS: Cannabinoid Screen,Urine Negative ng/ml (<50); Cocaine Screen,Urine Negative ng/ml (<300)
[2023-07-07 06:33] LABS: Methadone Screen,Urine Negative ng/ml (<300); Opiate Screen,Urine Negative ng/ml (<300)
[2023-07-07 06:34] LABS: Basophils % 0.4 % (0.1-2.0); Eosinophils # 0.1 K/mm3 (0.0-0.4); Eosinophils % 1.4 % (0.1-12.0); Hematocrit 35.3 % (37.0-47.0); Hemoglobin 12.7 g/dL (12.2-16.2); Lymphocytes % 23.5 % (10-50); Mean Corpuscular HGB Conc 35.9 g/dL (31.8-35.4); Mean Corpuscular Volume 86.2 fl (81-99); Mean Platelet Volume 8.2 fl (7.4-10.4); Monocytes # 0.4 K/mm3 (0.1-1.0); Monocytes % 4.1 % (1.7-9.3); Neutrophils % 70.7 % (37.0-80.0); Platelet Count 163 K/mm3 (142-424); Red Blood Count 4.09 M/mm3 (4.20-5.40); Red Cell Distribution Width 14.6 % (11.5-17.5); White Blood Count 8.4 K/mm3 (4.8-10.8)
[2023-07-07 06:34] LABS: Phencyclidine Screen,Urine Negative ng/ml (<25)
[2023-07-07 07:02] VITALS: BP 112/75; PULSE 107; RESP 18; TEMP 37.1; O2SAT 97; BMI 26.9
--- NOTE | 2023-07-07 11:20 | EXP.OB.APHP ---
OB - H&P: HPI Antepartum History of Present Illness Chief complaint: Elective induction of labor History of present illness: Mrs Ashlyn Hugo is a 33 yo at 40w0d who presents to [facility] Labor and Delivery for scheduled induction of labor. She admits to pelvic pressure. No contractions or leakage of fluid. History of Present Criteria for establishing EDC:: LMP confirmed by 1st trimester US care: good care Ultrasounds: normal mid trimester US Obstetrical complications: none Medical complications: none Labs Blood type: B (+) positive Rubella: immune (Equivocal) RPR/VDRL: nonreactive GBS status: positive HBsAG: negative PFSH PFS Disclaimer: The information contained in this section may have been updated after the patient was seen, as this information can be updated by other users. Medical History (Updated 07/07/23 @ 12:48 by Zoila Aguilar DO) 40 weeks gestation of Breech presentation GBS (group B Streptococcus carrier), +RV culture, currently GBS bacteriuria Surgical History No history of previous surgery Family History Grandmother Cancer Social History Smoking Status: Never smoker alcohol intake: never substance use type: denies use current occupational status: employed Travel in the last 8 weeks: None Review of Systems Review of Systems Review of systems:: pertinent systems reviewed and negative unless documented below Meds Home Medications and Allergies Home Medications Medication Instructions Recorded Confirmed Type vit no.95-ferrous 1 tab PO DAILY Supplement 07/07/23 07/07/23 History fumarate 28 mg-folic acid 800 mcg tablet () New Prescriptions to Start Prescriptions: Allergies Allergy/AdvReac Type Severity Reaction Status Date / Time No Known Allergies Allergy Verified 07/02/23 14:27 OB - H&P: Exam Physical Exam Vital signs: Temp Pulse Resp BP Pulse Ox O2 Del Method 98.8 F 107 H 18 112/75 97 Room Air 07/07/23 07:02 07/07/23 07:02 07/07/23 07:02 07/07/23 07:02 07/07/23 07:02 07/07/23 07:02 Constitutional no acute distress and cooperative Routine HEENT Exam Head: Present normocephalic and atraumatic Eye: Absent conjunctivae pink ENT: Present mucous membranes moist Routine Neck Exam Present full ROM Routine Respiratory Exam Present CTA bilaterally and normal respiratory effort Routine Cardiovascular Exam Present RRR Routine Abdominal Exam Present soft (Gravid); Absent tenderness Routine Rectal Exam Patient deferred: visual exam Routine Exam External: Present normal urethra appearance; Absent erythema, tenderness, lesions or lacerations Routine Extremities Exam Present full ROM; Absent edema or calf tenderness Routine Neurological Exam Present alert, oriented X3 and moving all extremities Routine Psychiatric Exam Present normal affect and cooperative Detailed Labor and Delivery Exam Dilation (cm): 3 Effacement (%): 60 Cervix position: anterior station: -1 Consistency: soft Membranes: artificially ruptured Amniotic fluid: clear Baseline heart rate: 125 monitor accelerations: Present monitor decelerations: None jail variability: Moderate (11-25) Contraction frequency (min): 3 Tachysystole: No OB - Results Labs Labs: Short CBC 07/07/23 Range/Units 06:00 WBC 8.4 (4.8-10.8) K/mm3 Hgb 12.7 (12.2-16.2) g/dL Hct 35.3 L (37.0-47.0) % Plt Count 163 (142-424) K/mm3 Urine 07/07/23 Range/Units 05:50 Urine Color Yellow (Yellow) Urine Appearance Clear (Clear) Urine pH 6.5 (5.0-8.5) Ur Specific [place] 1.020 (1.005-1.030) Urine Protein Trace (Negative) Urine Glucose (UA) Negative (Negative) OB - A/P Antepartum (1) 40 we
--- NOTE | 2023-07-07 13:06 | EXP.ANES.CKL ---
[facility] Disclaimer: The information contained in this section may have been updated after the patient was seen, as this information can be updated by other users. Medical History (Updated 07/07/23 @ 12:48 by Zoila Aguilar DO) 40 weeks gestation of Breech presentation GBS (group B Streptococcus carrier), +RV culture, currently GBS bacteriuria Surgical History No history of previous surgery Family History Grandmother Cancer Social History Smoking Status: Never smoker alcohol intake: never substance use type: denies use current occupational status: employed Travel in the last 8 weeks: None [facility] Anesthesia Checklist Patient Identification Patient Identification: Verbal (Name & ) Structural Data Admitted From: Inpatient Planned Operative Procedure/s: labor epidural Consent for Planned Operative Procedure(s) Verified: Yes Additional verifications Anesthesia Reactions: No Airway Assessment Mallampati Score:: Class I C-Spine Mobility Assessed: Yes TMJ Mobility Assessed: Yes Dentition: Good Dentition Neurological Assessment Level of Consciousness: Awake, Alert and Appropriate Anesthesia Plan Anesthesia Risk discussed: Yes Anesthesia Plan: Verified ASA Class: II Anesthesia Type: Epidural
[2023-07-07 16:07] LABS: Bacteria,Urine 1+ /lpf; WBC,Urine 20-50 #/hpf (0-3); Yeast,Urine Occasional /lpf
--- NOTE | 2023-07-07 16:07 | EXP.DN ---
Delivery Note Delivery Date:: 07/07/23 Delivery Time:: 15:48 Anesthesia Type: Epidural Was labor medically induced?: No Induction method: per pitocin protocol Gestational age (weeks): 40 delivered prior to 39 weeks?: No Infant Gender: Female at 1 minute: 8 at 5 minutes: 9 Delivery Procedure:: Mom complete with epidural. Pushed for approximately 40 minutes. Head delivered spontaneously over intact perineum in ANIKA position. No nuchal cord. Posterior hand, arm and shoulder delivered spontaneously. Anterior shoulder delivered spontaneously. Baby placed on maternal abdomen, mouth and nares bulb suctioned, warmed/dried and stimulated. Delayed cord clamping was performed for 60 minutes per mom's request. Cord was clamped and cut by father of baby. Small amount of cord blood was obtained. Placenta delivered spontaneously and intact. No lacerations. Mom and baby were skin to skin and doing well after delivery. Live female baby (baby's name is Zachary Maurice) APGARs 8, 9 EBL 150 mL Placental Delivery Description: Spontaneous
--- NOTE | 2023-07-08 07:39 | EXP.DC.SUM ---
General Admission date:: 07/07/23 Discharge date: 07/08/23 HPI HPI HPI: PPD # 1 s/p Feeling well. Pain controlled. Lochia appropriate. Formula feeding. Voiding without difficulty and passing flatus. Tolerating regular diet. No fever/chills, chest pain or shortness of breath. No headaches, vision changes, lightheadedness/dizziness. Ambulating well ad becky. Hospital Course Hospital Course Hospital Course: Mrs Ashlyn Hugo is a 33 yo at 40w0d who presente to [facility] Labor and Delivery for scheduled induction of labor. GBS + and GBS bactiuria in early . She underwent induction of labor with Pitocin and amniotomy. She received Ampicillin for GBS prophylaxis. She had a normal spontaneous vaginal delivery on 07/07/23 at 1548. She had a live female baby, Zachary Maurice, weighing 7 lb 14 oz. APGARs 8, 9. EBL 150 mL. She did well . Pain controlled. Lochia appropriate. Formula feeding. Voiding without difficulty and passing flatus. Tolerating regular diet. No fever/chills, chest pain or shortness of breath. No headaches, vision changes, lightheadedness/dizziness. Ambulating well ad ebcky. No lower extremity edema. She was discharged home on PPD # 1 with instructions to follow-up in the office in 2 weeks. Exam Data for Last 24 hours Vital signs and Labs for Last 24 Hours: Temp Pulse Resp BP Pulse Ox O2 Del Method 98.8 F 107 H 18 112/75 97 Room Air 07/07/23 07:02 07/07/23 07:02 07/07/23 07:02 07/07/23 07:02 07/07/23 07:02 07/07/23 07:02 Laboratory Results - last 24 hr 07/07/23 05:50: Urine RBC 5-10, Urine WBC 20-50, Ur Squamous Epith Cells 3-5, Urine Bacteria 1+, Urine Yeast Occasional I & O for Last 24 hours: Intake & Output 07/05/23 07/06/23 07/07/23 07/08/23 23:59 23:59 23:59 23:59 Weight 147 lb Constitutional Constitutional: no acute distress and cooperative *Routine HEENT Exam Head: Present normocephalic and atraumatic Eye: Absent conjunctivae pink ENT: Present mucous membranes moist and dentition normal *Routine Neck Exam Neck: Present full ROM *Routine Respiratory Exam Respiratory: Present CTA bilaterally and normal respiratory effort *Routine Cardiovascular Exam Cardiovascular: Present RRR *Routine Abdominal Exam Abdominal: Present soft; Absent tenderness or distended Comments: Uterine fundus firm and below umbilicus *Routine Rectal Exam Patient deferred: visual exam *Routine Exam Patient deferred: external exam *Routine Extremities Exam Extremities: Present full ROM; Absent edema or calf tenderness *Routine Neurological Exam Neurological: Present alert, oriented X3 and moving all extremities Routine Psychiatric Exam Psychiatric: Present normal affect and cooperative Results Data Completed and Pending Labs on day of discharge: Labs from last 24 hours 07/07/23 05:50 Urine RBC 5-10 Urine WBC 20-50 Ur Squamous Epith Cells 3-5 Urine Bacteria 1+ Urine Yeast Occasional DS: Diagnosis Discharge Diagnosis (1) 40 weeks gestation of : Status: Acute Code(s): Z3A.40 - 40 weeks gestation of (2) GBS (group B Streptococcus carrier), +RV culture, currently : Status: Acute Code(s): O99.820 - Streptococcus B carrier state complicating (3) GBS bacteriuria: Status: Acute Code(s): R82.71 - Bacteriuria Problem details: During Meds Home Medications and Allergies Home Medications Medication Instructions Recorded Confirmed Type vit no.95-ferrous 1 tab PO DAILY Supplement 07/07/23 07/07/23 History fumarate 28 mg-folic acid 800 mcg tablet () New Prescriptions to Start Prescriptions: Allergies Allergy/AdvReac Type Severity Reaction Status Date / Time No Known Allergies Allergy Verified 07/02/23 14:27 Discharge Plan Disposition Patient Disposition: Home, Self-Care Condition: Good Discharge Order Disch
[2023-07-08 08:07] LABS: Hematocrit 31.8 % (37.0-47.0); Hemoglobin 11.2 g/dL (12.2-16.2)
== END 2023-07-08 10:10 | disposition home or self-care (01) | DRG 807 ==
PROVIDERS: Admitting Provider Obstetrics & Gynecology; Visit Provider Obstetrics & Gynecology
DX: O98.82 Other maternal infectious and parasitic diseases complicating childbirth (principal); Z37.0 Single live birth; B95.1 Streptococcus, group B, as the cause of diseases classified elsewhere; Z3A.40 40 weeks gestation of pregnancy
CPT/HCPCS: 59409; 59025; 80305; 81001; 85014; 85018; 85025; 86850; 87086; 94761; G0283; J0290

== ENCOUNTER 2024-06-21 07:22 | Outpatient (CLI) | payer BC, SELFPAY ==
[2024-06-21 07:47] LABS: Basophils # 0.1 K/mm3 (0-0.2); Basophils % 0.9 % (0.1-2.0); Eosinophils # 0.1 K/mm3 (0.0-0.4); Eosinophils % 1.8 % (0.1-12.0); Hematocrit 42.5 % (37.0-47.0); Hemoglobin 14.7 g/dL (12.2-16.2); Lymphocytes # 1.5 K/mm3 (0.7-4.5); Lymphocytes % 29.4 % (10-50); Mean Corpuscular HGB Conc 34.5 g/dL (31.8-35.4); Mean Corpuscular Hemoglobin 30.1 pg (27.0-31.2); Mean Corpuscular Volume 87.3 fl (81-99); Mean Platelet Volume 7.3 fl (7.4-10.4); Monocytes # 0.2 K/mm3 (0.1-1.0); Monocytes % 4.6 % (1.7-9.3); Neutrophils # 3.3 K/mm3 (1.8-7.8); Neutrophils % 63.2 % (37.0-80.0); Platelet Count 194 K/mm3 (142-424); Red Blood Count 4.87 M/mm3 (4.20-5.40); Red Cell Distribution Width 13.2 % (11.5-17.5); White Blood Count 5.2 K/mm3 (4.8-10.8)
[2024-06-21 08:07] LABS: Albumin Level 4.6 g/dl (3.5-5.0); Chloride 106 mmol/L (98-107); Potassium 4.3 mmoL/L (3.5-5.1); Sodium 140 mmol/L (136-145)
[2024-06-21 08:09] LABS: Blood Urea Nitrogen 9 mg/dl (7-17); Estimated Glomerular Filt Rate 116 ml/min (>60); GFR (African American) 140 ML/MIN (>60)
[2024-06-21 08:10] LABS: Alanine Aminotransferase 16 U/L (12-78); Albumin/Globulin Ratio 2.1 (1.1-1.8); Alkaline Phosphatase 59 U/L (38-126); Anion Gap 10.3 mEq/L (5-15); Aspartate Amino Transferase 23 U/L (14-36); Bilirubin,Total 0.6 mg/dl (0.2-1.3); Carbon Dioxide 28 mmol/L (22.0-30.0); Cholesterol 124 mg/dl (140-200); Globulin 2.2 g/dL (1.3-3.2); Glucose 99 mg/dl (74-100); HDL Cholesterol 42 mg/dl (40-60); Total Protein,Serum 6.8 g/dl (6.3-8.2); Triglycerides 80 mg/dl (30-150); VLDL Cholesterol 16 mg/dL (0-40)
[2024-06-21 08:21] LABS: Direct LDL Cholesterol 57.82 mg/dL (100-129)
[2024-06-21 08:40] LABS: Thyroid Stimulating Hormone 1.19 uIU/mL (0.465-4.68)
[2024-06-21 11:18] LABS: Hemoglobin A1C 5.1 % (4.0-6.0)
[2024-06-21 15:36] LABS: Vitamin B12 548 pg/mL (239-931)
[2024-06-22 08:22] LABS: LH 7.8 mIU/mL (.); Testosterone,Total 7 ng/dL (8-60)
[2024-06-22 11:15] LABS: Estradiol 23.3 pg/mL (.); Insulin Level Total 5.5 uIU/mL (2.6-24.9)
[2024-06-27 01:13] LABS: Vitamin B1 147.8 nmol/L (66.5-200.0)
[2024-06-30 23:38] LABS: Vitamin B6 57.8 ug/L (3.4-65.2)
[2024-07-03 21:08] LABS: 1,25 Dihydroxy Vitamin D 62 pg/mL (.); 1,25-Dihydroxy, Vitamin D-2 <10 pg/mL (.); 1,25-Dihydroxy, Vitamin D-3 56 pg/mL (.)
== END 2024-06-21 23:59 | disposition home or self-care (01) ==
PROVIDERS: Visit Provider Obstetrics & Gynecology
DX: R53.83 Other fatigue (principal); R68.82 Decreased libido; L70.9 Acne, unspecified
CPT/HCPCS: 36415; 80050; 80053; 80061; 82607; 82652; 82670; 83001; 83002; 83036; 83525; 84207; 84403; 84425; 84443; 85025

== ENCOUNTER 2025-01-01 14:12 | Outpatient (CLI) | payer BC, SELFPAY ==
--- NOTE | 2025-01-01 14:58 | PC.NURSE ---
TB gold drawn per order for employee screening. blood drawn via butterfly needle in left ac. needle removed and coban applied.
[2025-01-03 16:12] LABS: QuantiFERON-TB Gold Plus Negative (Negative)
== END 2025-01-01 14:59 | disposition home or self-care (01) ==
LOC: INF 14:14
PROVIDERS: Visit Provider Family Medicine
DX: R68.82 Decreased libido (principal)
CPT/HCPCS: 36415; 86480

== ENCOUNTER 2025-06-11 15:02 | Outpatient (CLI) | payer BC, SELFPAY ==
--- NOTE | 2025-06-11 15:06 | US_ITS ---
PROCEDURE: US TRANSVAGINAL CLINICAL INDICATION: IUD strings lost COMPARISON: No exams were available for comparison FINDINGS: Transvaginal sonographic images of the pelvis were obtained. UTERUS: 7.2cm x 4.2cmx 3.4cm anteverted with a combined endometrial thickness of 3.5mm. There is an IUD within the uterine cavity in the correct position. LEFT OVARY: 2.1cmx1.5x1.8cm with a volume of 3.2ml. There is a small follicle in the left ovary. RIGHT OVARY: 3.8 cmx 1.9 cmx1.3cm with a volume of 4.8ml. There are several small follicles in the right ovary. Both ovaries are seen and appear normal. Doppler flow to both ovaries are seen. There is no fluid in the cul-de-sac. IMPRESSION: 1. Anteverted uterus normal in shape and size. The endometrium appears thin. 2. There is an IUD within the uterine cavity in the correct position. 3. Both ovaries are seen and appear normal. The right ovary has multiple follicles and the left ovary has a single follicle. 4. No fluid in the cul-de-sac. Dictated by: Teddy Andrade MD 06/11/2025 15:39 Teddy Andrade MD in [place] 06/11/2025 15:39
== END 2025-06-11 23:59 | disposition home or self-care (01) ==
LOC: RAD 15:03
PROVIDERS: PCP Obstetrics & Gynecology; Visit Provider Obstetrics & Gynecology
DX: N85.4 Malposition of uterus (principal); N83.02 Follicular cyst of left ovary; N83.01 Follicular cyst of right ovary; Z97.5 Presence of (intrauterine) contraceptive device
CPT/HCPCS: 76830